=== PATIENT | male | born 1965 | race Caucasian/White ===

== ENCOUNTER 2017-08-04 10:00 | Emergency (ER) | payer OTHER ==
[2017-08-04 10:38] LABS: #Basophils 0.1 thou/uL (0.0-0.2); #Eosinphils 0.1 thou/uL (0.0-0.7); #Lymphocytes 1.6 thou/uL (1.20-3.40); #Monocytes 0.5 thou/uL (0.11-0.59); #Neutrophils 4.2 thou/uL (1.40-6.50); %Basophils 1.2 % (0.0-1.0); %Eosinophils 1.5 % (0.0-10.0); %Lymphocytes 24.8 % (21.0-51.0); %Monocytes 7.7 % (0.0-10.0); Hematocrit 45.2 % (42.0-52.0); Mean Platelet Volume 6.6 fL (7.4-10.4); Red Blood Cell (RBC) Count 5.08 mill/uL (4.70-6.10); White Blood Cell (WBC) Count 6.4 thou/uL (4.8-10.8)
[2017-08-04 10:51] LABS: ALT (SGPT) 26 U/L (8-55); AST (SGOT) 16 U/L (5-34); Alkaline Phosphatase 45 U/L (40-150); Anion Gap 14 mmol/L (10-20); BUN (Urea Nitrogen) 19 mg/dL (8.4-25.7); Bilirubin, Total 0.5 mg/dL (0.2-1.2); Calc. Creatinine Clearance 0 mL/min (70-130); Calcium 10.1 mg/dL (7.8-10.44); Carbon Dioxide 27 mmol/L (22-29); Chloride 101 mmol/L (98-107); Estimated GFR-MDRD 68; Globulin 3.2 g/dL (2.4-3.5); Protein, Total 7.4 g/dL (6.0-8.3)
[2017-08-04 10:54] LABS: Troponin I Less than 0.010 ng/mL (< 0.028)
--- NOTE | 2017-08-04 11:22 | RAD ---
PORTABLE AP CHEST XRAY: DATE: 08/04/17. HISTORY: Chest pain with onset 1 day ago. The patient complains of pain mainly in the left side of the chest with radiation of the pain down the left arm. FINDINGS: Cardiac silhouette and pulmonary vasculature are within normal limits. Lungs are clear. [place] sc rew overlies the right humeral head. There has been no interval change compared to a study on including S-shaped scoliotic curvature of thoracic spine. IMPRESSION: No acute cardiopulmonary process. POS: NAOMI
== END 2017-08-04 13:09 | disposition home or self-care (01) ==
LOC: SCSER 10:00
DX: R07.9 Chest pain, unspecified (principal); F17.220 Nicotine dependence, chewing tobacco, uncomplicated
CPT/HCPCS: 71010; 80053; 82553; 84484; 85025; 93005

== ENCOUNTER 2018-05-06 14:45 | Inpatient (IN) | payer OTHER ==
[2018-05-06 15:37] LABS: #Basophils 0.1 thou/uL (0.0-0.2); #Lymphocytes 1.2 thou/uL (1.20-3.40); #Monocytes 0.7 thou/uL (0.11-0.59); #Neutrophils 8.8 thou/uL (1.40-6.50); %Basophils 0.8 % (0.0-1.0); %Eosinophils 0.5 % (0.0-10.0); %Lymphocytes 11.4 % (21.0-51.0); %Monocytes 6.4 % (0.0-10.0); Hemoglobin 16.5 g/dL (14.0-18.0); Mean Corpuscular HGB CONC 36.1 g/dL (32.0-36.0); Mean Corpuscular Hemoglobin 32.9 pg (27.0-31.0); Mean Corpuscular Volume 91.2 fL (78.0-98.0); Mean Platelet Volume 6.2 fL (7.4-10.4); Platelet Count 260 thou/uL (130-400); RBC Distribution Width 11.7 % (11.5-14.5); Red Blood Cell (RBC) Count 5.02 mill/uL (4.70-6.10); White Blood Cell (WBC) Count 10.8 thou/uL (4.8-10.8)
--- NOTE | 2018-05-06 15:58 | RAD ---
PORTABLE CHEST ONE VIEW: Date: 05-06-18 Time: 2:20 p.m. History: Chest pain. Comparison: 08-04-17 FINDINGS: The heart size is normal. The lungs are well expanded without focal areas of consolidation, pneumotho rax, or pleural effusions. There are post op changes of right rotator cuff repair and distal right cl avicular resection. IMPRESSION: No radiographic evidence of acute cardiopulmonary process. POS: RADAMES
[2018-05-06 16:00] LABS: ALT (SGPT) 27 U/L (8-55); AST (SGOT) 18 U/L (5-34); Albumin 4.1 g/dL (3.5-5.0); Alkaline Phosphatase 45 U/L (40-150); Anion Gap 14 mmol/L (10-20); BUN (Urea Nitrogen) 20 mg/dL (8.4-25.7); Bilirubin, Total 0.5 mg/dL (0.2-1.2); CK (CPK) 88 U/L (30-200); Calc. Creatinine Clearance 0 mL/min (70-130); Calcium 9.6 mg/dL (7.8-10.44); Carbon Dioxide 25 mmol/L (22-29); Chloride 102 mmol/L (98-107); Estimated GFR-MDRD 57; Globulin 3.1 g/dL (2.4-3.5); Glucose 100 mg/dL (70-105); Lipase 28 U/L (8-78); Potassium 4.1 mmol/L (3.5-5.1); Protein, Total 7.2 g/dL (6.0-8.3); Sodium 137 mmol/L (136-145)
[2018-05-06 16:02] LABS: CKMB 1.4 ng/mL (0-6.6); Troponin I 0.152 ng/mL (< 0.028)
[2018-05-06] MEDS ORDERED: Enoxaparin Sodium 100 MG/ML SYRINGE ONE (16:17)
[2018-05-06] MEDS ORDERED: Ondansetron HCl/PF 4 MG/2 ML Vial IVP PRN (18:17)
[2018-05-06] MEDS ORDERED: Ondansetron ODT 4 MG TAB PO PRN (18:17)
[2018-05-06] MEDS ORDERED: Acetaminophen 650 MG Suppository PR PRN (18:17)
[2018-05-06 18:20] VITALS: BMI 29.0
--- NOTE | 2018-05-06 18:22 | CON ---
DATE OF CONSULTATION: 05/06/2018 REASON FOR CONSULTATION: Chest pain. PRIMARY VOICER: Issa Davis M.D. HISTORY OF PRESENT ILLNESS: Mr. Marcus grove is a very pleasant 53-year-old white gentleman who comes t o the hospital for chest pain. He was evaluated in the past back in July for chest in the ER, he was ruled out and sent home. I saw him just about a week later and ordered stress that he had a PET scan back in August that was completely normal. Normal LV function. His echo also showed normal LV function with diastolic dysfunction and mild MR and TR. He was started on blood pressure medicati ons at that time as his blood pressures at home have been in the 140s. He comes back today for yobani nued episodes of chest pain. On my evaluation, he is chest pain free. PAST MEDICAL HISTORY: 1. Hypertension. 2. Diastolic dysfunction. PAST SURGICAL HISTORY: Knee replacement. OUTPATIENT MEDICATIONS: Include, 1. Cialis. 2. Lisinopril 2.5 mg a day. ALLERGIES: PENICILLIN. SOCIAL HISTORY: Noncontributory. FAMILY HISTORY: Noncontributory. REVIEW OF SYSTEMS: A 12-point review of systems was done and is all negative unless stated in the hi story of present illness. PHYSICAL EXAMINATION: VITAL SIGNS: Temperature 98.2, pulse 72, respiratory rate 18, satting 98% on room air, blood pressur e 132/60. GENERAL: Awake, alert, oriented x3, in no distress. HEENT: Normocephalic, atraumatic. NECK: Supple. LUNGS: Lungs are clear. CARDIOVASCULAR: S1, S2, no S3, S4, no murmurs. ABDOMEN: Soft. Positive bowel sounds. EXTREMITIES: No edema. SKIN: Warm and dry. LABORATORY WORK: Reviewed. CBC is unremarkable. Coags: D-dimer was undetectable. Chemistry is un remarkable except for a creatinine of 1.31. CK-MB was 1.4, troponin I was 0.15. BNP was less than a ssay limit, albumin of 4.1. Lipase was normal. IMAGING: Chest x-ray was unremarkable. ASSESSMENT AND PLAN: 1. Chest pain. 2. Hypertension. 3. Obstructive sleep apnea by history. PLAN: He has chest pain despite, an abnormal stress. We will have to further risk stratify with a h eart catheterization. I have spoken with him at length of the risks and benefits of the procedure. The risks included, but not limited to stroke, OR, bleeding, need for blood transfusion, limb loss, o rgan loss, vascular injury. Patient understands and verbalized understanding of this, he agrees to juan pablo bhagat. Further recommendation per results of coronary angiogram.
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
[2018-05-06] MEDS ORDERED: Sodium Chloride 0.9% 1,000 ML IV SCH (18:27)
[2018-05-06 19:15] LABS: Troponin I 0.852 ng/mL (< 0.028)
[2018-05-06] MEDS: Metoprolol Tartrate 25 MG TAB PO SCH (21:37)
[2018-05-06] MEDS: Famotidine 20 MG TAB PO SCH (21:37)
[2018-05-06] MEDS: Nitroglycerin 2% Ointment 1 INCH/1 GM Packet TOP SCH (21:38)
[2018-05-07] MEDS: Acetaminophen 325 MG TAB PO PRN ×2 (02:13→13:01)
[2018-05-07 03:06] LABS: #Basophils 0.1 thou/uL (0.0-0.2); #Eosinphils 0.2 thou/uL (0.0-0.7); #Lymphocytes 2.6 thou/uL (1.20-3.40); #Monocytes 0.6 thou/uL (0.11-0.59); #Neutrophils 3.8 thou/uL (1.40-6.50); %Basophils 1.3 % (0.0-1.0); %Eosinophils 2.2 % (0.0-10.0); %Lymphocytes 35.8 % (21.0-51.0); %Monocytes 8.1 % (0.0-10.0); %Neutrophils 52.6 % (42.0-75.0); Hemoglobin 15.1 g/dL (14.0-18.0); Mean Corpuscular HGB CONC 36.2 g/dL (32.0-36.0); Mean Corpuscular Hemoglobin 33.3 pg (27.0-31.0); Mean Corpuscular Volume 91.9 fL (78.0-98.0); Mean Platelet Volume 6.4 fL (7.4-10.4); Platelet Count 248 thou/uL (130-400); RBC Distribution Width 11.8 % (11.5-14.5); Red Blood Cell (RBC) Count 4.55 mill/uL (4.70-6.10); White Blood Cell (WBC) Count 7.2 thou/uL (4.8-10.8)
[2018-05-07 03:31] LABS: CKMB 4.9 ng/mL (0-6.6)
[2018-05-07 03:55] LABS: Troponin I 0.993 ng/mL (< 0.028)
[2018-05-07 04:09] LABS: Anion Gap 13 mmol/L (10-20); BUN (Urea Nitrogen) 19 mg/dL (8.4-25.7); Calc. Creatinine Clearance 86 mL/min (70-130); Calcium 9.3 mg/dL (7.8-10.44); Carbon Dioxide 27 mmol/L (22-29); Cardiac Risk 5.2 (Less than 4.5); Chloride 102 mmol/L (98-107); Cholesterol 198 mg/dl (< 200 Desired); Estimated GFR-MDRD 60; Glucose 94 mg/dL (70-105); HDL Cholesterol 38 mg/dL (>60 Neg Risk); LDL Cholesterol, Calculated 103 mg/dL; Magnesium 2.2 mg/dL (1.6-2.6); Potassium 4.6 mmol/L (3.5-5.1); Sodium 137 mmol/L (136-145); Triglycerides 284 mg/dL (Less than 150)
[2018-05-07] MEDS: Nitroglycerin 2% Ointment 1 INCH/1 GM Packet TOP SCH ×2 (05:50→15:59)
[2018-05-07] MEDS ORDERED: Aspirin 325 MG TAB PO SCH (09:00)
[2018-05-07] MEDS ORDERED: Iopamidol 370 76% 100 ML VIAL ONE (10:02)
[2018-05-07] MEDS ORDERED: Iopamidol 370 76% 50 ML VIAL FS ONE (10:02)
[2018-05-07] MEDS ORDERED: Lidocaine 1% (PF) 30 ML VIAL ONE (10:44)
[2018-05-07] MEDS ORDERED: Fentanyl 100 MCG/2 ML VIAL ONE (11:10)
[2018-05-07] MEDS ORDERED: Midazolam HCl 2 mg/2 ml Vial ONE (11:11)
[2018-05-07] MEDS ORDERED: Verapamil 5 MG/2 ML VIAL ONE (11:14)
[2018-05-07] MEDS ORDERED: Heparin 10,000 UNITS/1 ML VIAL ONE (11:14)
[2018-05-07] MEDS ORDERED: Nitroglycerin 100MG/250ML BOT 250 ML ONE (11:14)
[2018-05-07] MEDS: Metoprolol Tartrate 25 MG TAB PO SCH (11:22)
[2018-05-07] MEDS ORDERED: TICAGRELOR 90 MG TABLET ONE (11:57)
[2018-05-07] MEDS ORDERED: Nitroglycerin 0.4 MG TAB (25 Tab Bottle) SL PRN (12:03)
[2018-05-07] MEDS: Famotidine 20 MG TAB PO SCH (13:00)
[2018-05-07 16:25] VITALS: BP 110/72; TEMP 97.8
[2018-05-07] MEDS ORDERED: Atorvastatin Calcium 40 MG TAB PO SCH (21:00)
[2018-05-07] MEDS ORDERED: TICAGRELOR 90 MG TABLET PO SCH (21:00)
--- NOTE | 2018-05-08 07:01 | EKG ---
Test Reason : POST STENT Blood Pressure : / mmHG Vent. Rate : 047 BPM Atrial Rate : 047 BPM P-R Int : 160 ms QRS Dur : 094 ms QT Int : 456 ms P-R-T Axes : 022 052 097 degrees QTc Int : 403 ms Marked sinus bradycardia Nonspecific T wave abnormality Abnormal ECG When compared with ECG of 06-MAY-2018 14:52, (Unconfirmed) T wave inversion now evident in Anterior leads Confirmed by THERESA BEST ([id number]) on 05/08/2018 7:01:35 AM Referred By: ATILIO Confirmed By:THREESA BEST
[2018-05-08] MEDS ORDERED: Lisinopril 2.5 MG TAB PO SCH (09:00)
== END 2018-05-07 20:41 | disposition home or self-care (01) | DRG 247 ==
LOC: ERS 14:45 → 2NO 18:00
PROVIDERS: ADMIT Internal Medicine Infectious Disease; ATTEND Internal Medicine Infectious Disease
PROC: 027034Z Dilation of Coronary Artery, One Artery with Drug-eluting Intraluminal Device, Percutaneous Approach (ICD-10-PCS; principal; 2018-05-07)
PROC: 4A023N7 Measurement of Cardiac Sampling and Pressure, Left Heart, Percutaneous Approach (ICD-10-PCS; 2018-05-07)
DX: R07.9 Chest pain, unspecified (principal); I10 Essential (primary) hypertension; Z88.0 Allergy status to penicillin; G47.33 Obstructive sleep apnea (adult) (pediatric)
CPT/HCPCS: 36415; 71045; 80048; 80053; 80061; 82553; 83690; 83735; 83880; 84484; 85025; 85347; 85379; 92928; 93005; 93010; 93458; 96360; 96372; 99152; 99153; A4216; C1769; C1874; C9600; J1644; J1650; J2001; J2250; J3010

== ENCOUNTER 2021-12-31 14:52 | Outpatient (CLI) | payer OTHER ==
[2021-12-31 16:04] LABS: #Basophils 0.1 10x3/uL (0.0-0.2); #Eosinphils 0.2 10x3/uL (0.0-0.5); #Monocytes 0.6 10x3/uL (0.0-1.1); #Neutrophils 4.3 10x3/uL (1.5-8.4); %Basophils 1.5 % (0.0-2.0); %Eosinophils 2.3 % (0.0-6.0); %Lymphocytes 22.2 % (18.0-47.0); %Monocytes 8.7 % (0.0-10.0); %Neutrophils 64.7 % (40.0-75.0); Hemoglobin 16.1 g/dL (13.5-17.5); Mean Corpuscular HGB CONC 34.8 g/dL (32.0-36.0); Mean Corpuscular Hemoglobin 31.4 pg (27.0-33.0); Mean Corpuscular Volume 90.4 fl (81.2-95.1); Platelet Count 292 10x3/uL (150-450); RBC Distribution Width 12.8 % (11.5-14.5); Red Blood Cell (RBC) Count 5.12 10x6/uL (4.32-5.72); White Blood Cell (WBC) Count 6.6 10x3/uL (3.5-10.5)
[2021-12-31 16:21] LABS: Anion Gap 16 mmol/L (10-20); BUN (Urea Nitrogen) 18 mg/dL (8.4-25.7); Calc. Creatinine Clearance 0 mL/min (70-130); Calcium 9.9 mg/dL (7.8-10.44); Carbon Dioxide 25 mmol/L (22-29); Chloride 101 mmol/L (98-107); Glucose 99 mg/dL (70-105); Potassium 4.4 mmol/L (3.5-5.1); Sodium 138 mmol/L (136-145)
[2021-12-31 22:15] LABS: SARS-CoV-2 PCR by NAA Not Detected (NotDetected)
== END 2021-12-31 14:53 | disposition home or self-care (01) ==
LOC: LABBT 14:52
PROVIDERS: ATTEND Orthopaedic Surgery
DX: Z01.818 Encounter for other preprocedural examination (principal); M75.112 Incomplete rotator cuff tear or rupture of left shoulder, not specified as traumatic; M75.42 Impingement syndrome of left shoulder; Z20.822 Contact with and (suspected) exposure to COVID-19
CPT/HCPCS: 71045; 80048; 85025; 93005; 93010; U0003; U0005